=== PATIENT | female | born 1940 | race Caucasian/White ===

== ENCOUNTER → 2018-07-16 | Outpatient (CLI) | payer OTHER | LOC: FIMAGING 10:21 | PROVIDERS: ATTEND Internal Medicine Rheumatology | DX: R91.8 Other nonspecific abnormal finding of lung field (principal); I25.10 Atherosclerotic heart disease of native coronary artery without angina pectoris; M06.9 Rheumatoid arthritis, unspecified ==

== ENCOUNTER 2018-10-29 09:23 | Inpatient (IN) | payer OTHER ==
[2018-10-29] MEDS ORDERED: NS 1,000 ML IV ONE (09:57)
[2018-10-29] MEDS ORDERED: ONDANSETRON 4 MG/2 ML VIAL IVP ONE ×2 (10:03→11:46)
--- NOTE | 2018-10-29 10:03 | EDPHY ---
H & P Stated Complaint: mid abd pain x 1 wk worse lst night,vomiting abd distention Time Seen by Provider: 10/29/18 09:43 HPI/ROS: CHIEF COMPLAINT: Abdominal pain and vomiting HISTORY OF PRESENT ILLNESS: This is a 78-year-old female with a history of rheumatoid arthritis on Humira, hypertension, and hypercholesterolemia. She has had 1 week of upper abdominal pain with associated vomiting. On the 1st day of this illness she vomited for 24 hr on and off. She then felt somewhat better, followed a bland diet and drank Pedialyte for the next 2 days. However , she continued with nausea and abdominal bloating; no vomiting. Last night she began vomiting again and vomited at least 4 times. No blood in the vomitus. She now complains of upper abdominal pain and bloating. She has not had diarrhea. She is passing gas. She had a bowel movement this morning, no blood. She has had a tubal ligation and an appendectomy, no other abdominal surgeries. She thinks she might have had a subjective fever 4 days ago, none since. REVIEW OF SYSTEMS: A ten system review of systems was performed and is negative with the exception of the items mentioned in the HPI. Past medical history: 1. Rheumatoid arthritis 2. Hypertension 3. Hyperlipidemia Past surgical history: 1. Appendectomy 2. Tubal ligation 3. Tonsillectomy Social history: She is here with her daughter. 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 She does not use tobacco products. She drinks 2 scotch per night. General Appearance: Alert. Vital signs reviewed. Blood pressure 143/88, temperature 36.5 degrees. Eyes: Pupils equal and round, no conjunctival injection, no discharge. Anicteric. ENT, Mouth: Mucous membranes are moist, no oropharyngeal erythema or edema. Neck: No lymphadenopathy, supple. Respiratory: Lungs are clear to auscultation; no wheezes, rales, or rhonchi. Cardiovascular: Regular rate and rhythm; no murmur, rub, or gallop. Gastrointestinal: Abdomen is soft with bilateral upper quadrant and midepigastric tenderness, also some periumbilical tenderness, mild distention, no masses or organomegaly, bowel sounds slightly decreased. No guarding. Skin: Warm and dry, no rashes on exposed skin, normal color. Back: Nontender to palpation over the thoracolumbar spine. No CVAT. Extremities: No lower extremity edema, no calf tenderness or swelling. Neurological: Alert and oriented. Moving all four extremities easily and equally. Psychiatric: Normal affect. - Personal History Tetanus Vaccine Date: 3 years ago - Medical/Surgical History Hx Asthma: No Hx Chronic Respiratory Disease: No Hx Diabetes: No Hx Cardiac Disease: No Hx Renal Disease: No Hx Cirrhosis: No Hx Alcoholism: No Hx HIV/AIDS: No Hx Splenectomy or Spleen Trauma: No Other PMH: hyperlipidemia. RA. Htn - Social History Smoking Status: Never smoked Constitutional: Initial Vital Signs Temperature (C) 36.5 C 10/29/18 09:30 Heart Rate 91 10/29/18 09:30 Respiratory Rate 16 10/29/18 09:30 Blood Pressure 143/88 H 10/29/18 09:30 O2 Sat (%) 95 10/29/18 09:30 O2 Delivery Mode Room Air Allergies/Adverse Reactions: Ngbsphi-[id number]-Syv Reductase Inhibitor Allergy (Verified 10/29/18 12:04) Other-Enter Comments Home Medications: Medication Instructions Recorded Acetaminophen [Tylenol 325mg (*)] 325 mg PO Q6 PRN 10/29/18 Adalimumab [Humira] 40 mg SQ Q14D 10/29/18 Famotidine [Pepcid 20 MG (*)] 20 mg PO DAILY PRN 10/29/18 Hydrochlorothiazide 25 mg PO HS 10/29/18 Ramipril [Altace] 20 mg PO HS 10/29/18 Simvastatin [Zocor] 20 mg PO HS 10/29/18 Terazosin HCl [Hytrin 1 MG (*)] 3 mg PO HS 10/29/18 amLODIPine BESYLATE [Norvasc 5 mg 5 mg PO HS 10/29/18 (*)] Medical Decision Making ED Course/Re-evaluation: 78-year-old female with abdominal pain, vomiting, and some mild abdominal distention. Obtain CT scan of the abdomen. CBC, chemistries, LFTs, lipase ordered. She was given 1 L IV fluid. Antiemetics as needed. CT of abd/pelvis shows high grade distal SBO with 2 transition points. Discussed with radiologist. She is being admitted to for IVF, pain control, NG if needed, surgery if not improving or if worsens. CBC, chemistries, LFTs, lipase reviewed. EKG reviewed. No acute ischemic changes. LAFB. Possible anteroseptal infarct, old. See MUSE. In the ED she received IVF and IV zofran, remained NPO. She had no further vomiting, NG not required. Differential Diagnosis: Abdominal pain including but not limited to SBO, perforated viscous, pancreatitis, vascular occlusion, cholecystitis, gastritis and urinary tract infection. - Data Points Laboratory Results: Laboratory Results 10/29/18 10:55 10/29/18 10:10 Medications Given: Acetaminophen (Tylenol) 325 mg PO Q6 PRN PRN Reason: Pain, Mild Stop: 04/27/19 18:12 Last Admin: 10/30/18 23:53 Dose: 325 mg Amlodipine Besylate (Norvasc) 5 mg PO HS NABILA Stop: 04/27/19 20:59 Last Admin: 10/30/18 20:39 Dose: 5 mg Dextrose/Sodium Chloride (D5w 1/2 Ns) 1,000 mls @ 150 mls/hr IV CONT NABILA Stop: 04/27/19 15:29 Last Admin: 10/31/18 08:40 Dose: 1,000 mls Miscellaneous Medication (Ramipril [Altace]) 20 mg PO HS NABILA Stop: 04/27/19 20:59 Last Admin: 10/30/18 20:40 Dose: 20 mg Ondansetron HCl (Zofran) 4 - 8 mg IVP Q4HRS PRN PRN Reason: Nausea/Vomiting, Can't Take PO Stop: 04/27/19 15:26 Last Admin: 10/29/18 18:14 Dose: 4 mg Discontinued Medications Sodium Chloride (Ns) 1,000 mls @ 0 mls/hr IV EDNOW ONE; Wide Open PRN Reason: Protocol Stop: 10/29/18 09:58 Last Admin: 10/29/18 10:06 Dose: 1,000 mls Ondansetron HCl (Zofran) 4 mg IVP EDNOW ONE Stop: 10/29/18 10:04 Last Admin: 10/29/18 10:08 Dose: 4 mg Ondansetron HCl (Zofran) 4 mg IVP EDNOW ONE Stop: 10/29/18 11:47 Last Admin: 10/29/18 11:51 Dose: 4 mg Ondansetron HCl (Zofran) 4 mg IVP Q4HRS PRN PRN Reason: Nausea/Vomiting, Can't Take PO Stop: 04/27/19 15:26 Last Admin: 10/29/18 15:43 Dose: 4 mg Point of Care Test Results: Chemistry 10/29/18 10:15 POC Sodium 133 mEq/L L mEq/L (135-145) POC Potassium 3.3 mEq/L mEq/L (3.3-5.0) POC Chloride 94 mEq/L L mEq/L (97-110) POC Total CO2 23 mEq/L mEq/L (22-31) POC BUN 29 mg/dL H mg/dL (7-23) POC Creatinine 1.1 mg/dL H mg/dL (0.6-1.0) POC Glucose 127 mg/dL H mg/dL (70-100) ISTAT H&H 10/29/18 10:15 POC Hgb 15.6 gm/dL gm/dL (12.6-16.3) POC Hct 46 % % (38-47) Departure - Departure Disposition: [facility] Inpatient Acute Clinical Impression: SBO (small bowel obstruction) Condition: Good
[2018-10-29 11:08] LABS: PLATELET COUNT 200 10^3/uL (150-400)
[2018-10-29] MEDS ORDERED: ONDANSETRON 4 MG/2 ML VIAL IVP PRN ×2 (15:27→18:30)
[2018-10-29] MEDS ORDERED: HYDROmorphONE/DILAUDID 1 MG/ML INJ IVP PRN (15:27)
--- NOTE | 2018-10-29 15:35 | CPEKG ---
Test Reason : OPEN Blood Pressure : / mmHG Vent. Rate : 079 BPM Atrial Rate : 079 BPM P-R Int : 156 ms QRS Dur : 094 ms QT Int : 374 ms P-R-T Axes : 051 -60 032 degrees QTc Int : 429 ms Sinus rhythm Probable left atrial enlargement Left anterior fascicular block Probable anteroseptal infarct, old Confirmed by Velma Vogel ([id number]) on 10/29/2018 3:34:39 PM Referred By: Velma Vogel Confirmed By:Velma Vogel
[2018-10-29] MEDS: D5W 1/2 NS 1,000 ML IV SCH ×2 (15:42→22:11)
[2018-10-29] MEDS ORDERED: FAMOTIDINE 20 MG TAB PO PRN (18:13)
--- NOTE | 2018-10-29 18:13 | SOAPPROG ---
SOAP Progress Note Assessment/Plan: Assessment: 78-YEAR-OLD FEMALE WHO PRESENTS WITH SMALL-BOWEL OBSTRUCTION AND HAS BEEN DEVELOPING OVER THE LAST WEEK BUT PARTICULARLY SEVERE PAIN AND NAUSEA AND VOMITING LAST NIGHT PAST HISTORY OF APPENDECTOMY AND TUBAL LIGATION HEENT NONICTERIC WITHOUT ADENOPATHY CHEST CLEAR COR REGULAR RHYTHM ABDOMEN SOFT, NONTENDER, DISTENDED WITH NO OBVIOUS HERNIAS EXTREMITIES FULL RANGE OF MOTION IMPRESSION IS SMALL BOWEL OBSTRUCTION Plan: ADMIT FOR OBSERVATION IV FLUIDS POSSIBLE NG TUBE AND POSSIBLE SURGERY IF NOT IMPROVING 10/29/18 18:11 Objective: Vital Signs Temp Pulse Resp BP Pulse Ox 36.6 C 80 12 130/75 H 95 10/29/18 14:20 10/29/18 14:20 10/29/18 14:20 10/29/18 14:20 10/29/18 14:20 10/28/18 10/29/18 10/30/18 05:59 05:59 05:59 Intake Total 1000 Balance 1000 ICD10 Worksheet Patient Problems: Problems Problem Status Onset SBO (small bowel obstruction) Acute - ICD10 Problem Qualifiers (1) SBO (small bowel obstruction)
--- NOTE | 2018-10-29 18:41 | GHP ---
[f rep st] PREOP HISTORY AND PHYSICAL DATE OF ADMISSION: 10/29/2018 The patient is a 78-year-old female who was admitted with a small-bowel obstruction. She does have a history of rheumatoid arthritis and is on Humira. She has had an appendectomy and a tubal ligation. CT scan shows a high-grade small-bowel obstruction. She has had a bowel movement today and yesterd ay, but is presently passing no flatus and having crampy abdominal pain. No vomiting presently, but she did have emesis and pain last night. She is admitted at this time for observation, IV fluids, po ssible NG tube if she develops emesis and possible surgery if not improving. REVIEW OF SYSTEMS: Negative on a full 10-point review except as related to the HPI. PAST MEDICAL HISTORY: Includes rheumatoid arthritis, appendectomy, tubal ligation, tonsillectomy, hy pertension and hyperlipidemia. 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 FAMILY HISTORY: Noncontributory. MEDICATIONS: Include Humira, ramipril, Zocor, terazosin, hydrochlorothiazide and amlodipine. ALLERGIES: Statins. PHYSICAL EXAM: GENERAL: An alert 78-year-old female in no acute distress. She is afebrile. HEAD A ND NECK: Exam revealed no icterus, oral lesions or adenopathy. Pupils are equal and reactive and EO Ms are intact. NECK: Supple with full range of motion, full pulses and no bruits. CHEST: Clear an d symmetric. COR: Regular rhythm without murmurs. ABDOMEN: Soft, quite distended and protuberant, but minimally tender with positive bowel sounds. There are no obvious hernias. She has a lower abd ominal midline incision, which is old and well healed. EXTREMITIES: Reveal full range of motion and full pulses. NEUROLOGIC: Exam was physiologic and symmetric. PSYCH: Exam reveals her to be alert , oriented and cooperative. IMPRESSION: Small bowel obstruction, probably secondary to adhesions. PLAN: Admit for observation, IV fluids, possible NG tube and possible surgery if not improving. /[id number]/MODL
[2018-10-29] MEDS: amLODIPine BESYLATE 5 MG TAB PO SCH (20:32)
[2018-10-29] MEDS: RAMIPRIL 10 MG PO SCH (21:31)
[2018-10-29] MEDS: ACETAMINOPHEN 325 MG TAB PO PRN (22:15)
[2018-10-30] MEDS: D5W 1/2 NS 1,000 ML IV SCH (05:05)
[2018-10-30 05:25] LABS: PLATELET COUNT 200 10^3/uL (150-400)
--- NOTE | 2018-10-30 08:53 | SOAPPROG ---
SOAP Progress Note Assessment/Plan: Assessment/plan: 78 y/o F admitted with SBO Feeling better this am, but abdomen xray shows persistent air/fluid levels. Insert NG tube today. Continue NPO and iv fluids. Hoping to avoid surgery. S: Feeling a little better. Passed small amount of gas this am. O: Alert Afebrile RRR No increased WOB Abdomen: distended, but soft. ttp. hypoactive bowel sounds 10/30/18 08:51 Objective: Vital Signs Temp Pulse Resp BP Pulse Ox 36.8 C 70 16 107/66 95 10/30/18 07:24 10/30/18 07:24 10/30/18 07:24 10/30/18 07:24 10/30/18 07:24 Laboratory Results 10/30/18 04:26 10/30/18 04:26 10/29/18 10/30/18 10/31/18 05:59 05:59 05:59 Intake Total 3072 Output Total 750 300 Balance 2322 -300 ICD10 Worksheet Patient Problems: Problems Problem Status Onset SBO (small bowel obstruction) Acute
--- NOTE | 2018-10-30 09:39 | ASMTCMCOM ---
CM Note CM Note Notes: Met with Pt and chart reviewed for discharge. Malgorzata is a 78 yr old admitted with upper abd pain and vomiting. 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 Pt will likely return home independently in the same living arrangements. CM available for needs. PLAN: Home independently when medically cleared. Date Signed: 10/30/2018 09:38 AM Electronically Signed By:Claudia Buckley
--- NOTE | 2018-10-30 09:55 | PDMN ---
Medical Necessity Medical necessity: Pt meets inpt criteria per MD order and MCG M-210, Intestinal Obstruction, 2 days, 78 y/o admitted w/SBO, likely secondary to adhesions, abd xray this AM shows persistent air/fluid levels, NG tube, cont NPO and IVF, est LOS>2MN for ongoing eval/treatment of above.
[2018-10-30] MEDS: ACETAMINOPHEN 325 MG TAB PO PRN ×2 (16:33→23:53)
[2018-10-30] MEDS: amLODIPine BESYLATE 5 MG TAB PO SCH (20:39)
[2018-10-30] MEDS: RAMIPRIL 10 MG PO SCH (20:40)
[2018-10-30] MEDS ORDERED: RAMIPRIL 5 MG CAP PO SCH (21:00)
--- NOTE | 2018-10-31 08:06 | ASMTCMCOM ---
CM Note CM Note Notes: Pt is Pre op for surgery due to a small bowel obstruction this morning. Continues on IVF and NG tube, NPO. Pt will likely return home independently when medically stable and with no complications. 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 CM available for needs. PLAN: Home with daughters. Date Signed: 10/31/2018 08:05 AM Electronically Signed By:Claudia Buckley
[2018-10-31] MEDS: D5W 1/2 NS 1,000 ML IV SCH (08:40)
[2018-10-31] MEDS ORDERED: ceFAZolin 2 GM/DEXTROSE 100 ML IV ONE (08:53)
--- NOTE | 2018-10-31 08:55 | SOAPPROG ---
MADHAVI Progress Note Assessment/Plan: Assessment: 78-YEAR-OLD FEMALE WHO PRESENTS WITH SMALL-BOWEL OBSTRUCTION AND HAS BEEN DEVELOPING OVER THE LAST WEEK BUT PARTICULARLY SEVERE PAIN AND NAUSEA AND VOMITING LAST NIGHT PAST HISTORY OF APPENDECTOMY AND TUBAL LIGATION HEENT NONICTERIC WITHOUT ADENOPATHY CHEST CLEAR COR REGULAR RHYTHM ABDOMEN SOFT, NONTENDER, DISTENDED WITH NO OBVIOUS HERNIAS EXTREMITIES FULL RANGE OF MOTION IMPRESSION IS SMALL BOWEL OBSTRUCTION Plan: ADMIT FOR OBSERVATION IV FLUIDS POSSIBLE NG TUBE AND POSSIBLE SURGERY IF NOT IMPROVING 10/29/18 18:11 10/31/18 08:53 NO IMPROVEMENT IN SBO/ NO FLATUS/ LARGE NG OUTPUT/ AFEBRILE/ 2-WAY PENDING BUT STILL DISTENDED PLAN PROCEED WITH SURGERY/ RISKS AND OPTIONS FULLY DISCUSSED Objective: Vital Signs Temp Pulse Resp BP Pulse Ox 36.4 C 88 16 128/84 H 94 10/31/18 07:54 10/31/18 07:54 10/31/18 07:54 10/31/18 07:54 10/31/18 07:54 Laboratory Results 10/30/18 04:26 10/30/18 04:26 10/30/18 10/31/18 11/01/18 05:59 05:59 05:59 Intake Total 3072 1800 Output Total 750 1400 Balance 2322 400 ICD10 Worksheet Patient Problems: Problems Problem Status Onset SBO (small bowel obstruction) Acute - ICD10 Problem Qualifiers (1) SBO (small bowel obstruction)
[2018-10-31] MEDS ORDERED: BUPIVACAINE 0.5% 30 ML SDV ONE (10:12)
[2018-10-31] MEDS ORDERED: HEPARIN 1000 UNIT/1 ML MDV ONE (10:12)
[2018-10-31] MEDS ORDERED: ceFAZolin 1 GM/5 ML SYR ONE (10:13)
[2018-10-31] MEDS ORDERED: THROMBIN(HUM PLAS)/FIBRINOG/CA 5 ML VIAL TP ONE (10:14)
--- NOTE | 2018-10-31 10:16 | PDANEPAE ---
ANE History of Present Illness Bowel obstruction for laparoscopy possible laparotomy ANE Past Medical History - Cardiovascular History Hx Hypertension: Yes Hx Arrhythmias: No Hx Chest Pain: No Hx Coronary Artery / Peripheral Vascular Disease: No - Pulmonary History Hx Asthma/Reactive Airway Disease: No Hx Oxygen in Use at Home: No Hx Sleep Apnea: No Sleep Apnea Screening Result - Last Documented: Positive - Endocrine History Hx Diabetes: No - Chronic Pain History Chronic Pain: No ANE Review of Systems Review of Systems: ANE Patient History - Allergies Allergies/Adverse Reactions: Cyuaqyy-Ujj-Omq Reductase Inhibitor Allergy (Verified 10/29/18 12:04) Other-Enter Comments - Home Medications Home medications: home medication list seen and reviewed Home Medications: Acetaminophen [Tylenol 325mg (*)] 325 mg PO Q6 PRN 10/29/18 [Last Taken Unknown] Adalimumab [Humira] 40 mg SQ Q14D 10/29/18 [Last Taken 10/19/18] Famotidine [Pepcid 20 MG (*)] 20 mg PO DAILY PRN 10/29/18 [Last Taken 10/28/18 21:00] Hydrochlorothiazide 25 mg PO HS 10/29/18 [Last Taken 10/28/18] Ramipril [Altace] 20 mg PO HS 10/29/18 [Last Taken 10/28/18] Simvastatin [Zocor] 20 mg PO HS 10/29/18 [Last Taken 10/27/18] Terazosin HCl [Hytrin 1 MG (*)] 3 mg PO HS 10/29/18 [Last Taken 10/28/18] amLODIPine BESYLATE [Norvasc 5 mg (*)] 5 mg PO HS 10/29/18 [Last Taken 10/28/18] - NPO status NPO Since - Liquids (Date): 10/31/18 (Sips water until 09:20) NPO Since - Liquids (Time): 00:00 NPO Since - Solids (Date): 10/31/18 NPO Since - Solids (Time): 00:00 - Smoking Hx Smoking Status: Never smoked ANE Labs/Vital Signs - Labs Result Diagrams: 10/30/18 04:26 10/30/18 04:26 - Vital Signs Blood Pressure: 128/84 Heart Rate: 87 Respiratory Rate: 20 O2 Sat (%): 93 Height: 167.64 cm Weight: 72.121 kg ANE Physical Exam - Airway Neck exam: decreased ROM Mallampati Score: Class 2 Mouth exam: normal dental/mouth exam - Pulmonary Pulmonary: no respiratory distress - Cardiovascular Cardiovascular: regular rate and rhythym - ASA Status ASA Status: III, E ANE Anesthesia Plan Anesthesia Plan: general endotracheal anesthesia (NG to suction and RSI)
[2018-10-31] MEDS ORDERED: PROPOFOL 200 MG/20 ML VIAL ONE (10:41)
[2018-10-31] MEDS ORDERED: fentaNYL 100 MCG/2 ML INJ ONE (10:41)
[2018-10-31] MEDS ORDERED: LIDOCAINE 2% 2 ML INJ ONE (10:41)
[2018-10-31] MEDS ORDERED: DEXAMETHASONE 4 MG/ML VIAL ONE (11:18)
[2018-10-31] MEDS ORDERED: ONDANSETRON 4 MG/2 ML VIAL ONE (11:19)
[2018-10-31] MEDS ORDERED: NALOXONE HCL 0.4 MG/ML INJ IVP PRN (11:25)
[2018-10-31] MEDS ORDERED: fentaNYL 100 MCG/2 ML INJ IVP PRN (11:25)
[2018-10-31] MEDS ORDERED: ONDANSETRON 4 MG/2 ML VIAL IVP PRN (11:25)
[2018-10-31] MEDS ORDERED: SUGAMMADEX SODIUM 200 MG/2 ML VIAL IVP ONE (11:38)
--- NOTE | 2018-10-31 11:53 | POSTANESTH ---
Post Anesthetic Evaluation Cardiovascular Status: Similar to Pre-Op Cond Respiratory Status: Similar to Pre-op Cond. Level of Consciousness/Mental Status: Alert and Oriented Pain Control: Adequate, Prn Tx Ordered Nausea/Vomiting Control: Adequate, Prn Tx Ordered Complications Possibly Related to Anesthesia: None Noted
--- NOTE | 2018-10-31 11:54 | POSTOPPROG ---
Post Op Note Date of Operation: 10/31/18 Surgeon: Jamal Alvarez Journeyman Powerhouse Operator: Gordon Anesthesiologist: Blair Anesthesia: GET(General Endotracheal) Pre-op Diagnosis: SBO Post-op Diagnosis: Same Indication: same Procedure: Lap DEON Findings: band of scar tissue wrapped around small bowel. Inf/Abcess present in the surg proc area at time of surgery?: No Depth: Organ Space EBL: Minimal Bowel Protocol: N/A Clean Closure Performed: N/A
--- NOTE | 2018-10-31 18:23 | GOP ---
[f rep st] OPERATIVE REPORT DATE OF OPERATION: 10/31/2018 SURGEON: Jamal Alvarez MD PREOPERATIVE DIAGNOSIS: Small bowel obstruction. POSTOPERATIVE DIAGNOSIS: Small bowel obstruction. PROCEDURE PERFORMED: Laparoscopy with adhesiolysis and release of small-bowel obstruction. FINDINGS: Patient was found to have a knuckle of small bowel trapped in a single band in the right l ower quadrant near the previous appendectomy site. The rest of the bowel was free from any adhesions or abnormalities. DESCRIPTION OF PROCEDURE: The patient was taken to the operating room where she received satisfactor y general endotracheal anesthesia by Dr. Pinto. She was placed in supine position, prepped an d draped in usual sterile fashion. Supraumbilical incision was made and a Veress needle inserted. Pneumoperitoneum was established. Tr ocar was introduced. Laparoscope introduced. Adequate visualization was obtained. Two other trocar s placed in the lower abdomen. Bowel was mobilized. The point of obstruction was identified in the right lower quadrant. Fibrous band was readily cut releasing the trapped knuckle of small bowel. Tomer wel, itself, was viable and quite mobile. The adhesive band was completely removed. Hemostasis was assured. The bowel was then run from and then from the ligament of Treitz to the ileocecal valve wit h no other abnormalities being encountered. Trocars were then removed under direct vision and pneumoperitoneum was released. Trocar sites were c losed with 4-0 Monocryl subcuticular sutures for the skin. All layers were infiltrated with 0.5% [place]. Blood loss was negligible. Taken recovery room in good condition. No complications. /[id number]/MODL
[2018-10-31] MEDS: RAMIPRIL 10 MG PO SCH (20:20)
[2018-10-31] MEDS: amLODIPine BESYLATE 5 MG TAB PO SCH (20:20)
--- NOTE | 2018-11-01 12:49 | SOAPPROG ---
SOAP Progress Note Assessment/Plan: Assessment: 78-year-old female status post adhesiolysis for small bowel obstruction Vitals remained stable Abdomen is soft nondistended nontender with good bowel sounds, she is tolerating clear liquids. Will advance diet. She still on supplemental oxygen, wean is as tolerated Ideally she would wean off the oxygen before we send her home, which we later today versus tomorrow. Plan: 11/01/18 12:49 Subjective: Feels better, hungry Objective: Vital Signs Temp Pulse Resp BP Pulse Ox 36.8 C 85 16 124/80 H 92 11/01/18 11:15 11/01/18 11:15 11/01/18 11:15 11/01/18 11:15 11/01/18 11:19 Laboratory Results 10/30/18 04:26 10/30/18 04:26 10/31/18 11/01/18 11/02/18 05:59 05:59 05:59 Intake Total 1800 1610 Output Total 1400 Balance 400 1610 ICD10 Worksheet Patient Problems: Problems Problem Status Onset SBO (small bowel obstruction) Acute
[2018-11-01] MEDS: amLODIPine BESYLATE 5 MG TAB PO SCH (21:05)
[2018-11-01] MEDS: RAMIPRIL 10 MG PO SCH (21:06)
[2018-11-02] MEDS: ACETAMINOPHEN 325 MG TAB PO PRN ×2 (01:08→08:32)
[2018-11-02 07:14] VITALS: BP 121/68
--- NOTE | 2018-11-02 09:00 | ASMTLACE ---
LACE Length of stay for Answers: 3 days current admission Acuity / Level of Answers: Yes Care: Did the patient have an inpatient admission? Comorbidities - select Answers: Other Notes: HTN; HLD all that apply # of Emergency department Answers: 1-2 visits in the last 6 months Score: 8 Date Signed: 11/02/2018 08:59 AM Electronically Signed By:Lisa Jacome RN
--- NOTE | 2018-11-02 09:23 | PDDCSUM ---
Discharge Summary Discharge Summary: DISCHARGE SUMMARY Date of Admission October 29 Date of Discharge November 02 DISCHARGE DIAGNOSES -small-bowel obstruction HOSPITAL COURSE The patient was admitted from the ED and taken to the operating room where they underwent an uneventful laparoscopic lysis of adhesions. They were subsequently taken to the PACU and then the general medical floor. The hospital course was uneventful, their diet was advanced to a regular diet which was well tolerated and their pain was well controlled. They were discharged home in stable condition on DISCHARGE MEDICATIONS All home meds restarted, ibuprofen and Tylenol as needed for pain DISPOSITION Home FOLLOW UP Follow up with Dr. Alvarez in the office in 10-14 days for a general post- operative visit
--- NOTE | 2018-11-03 22:15 | GOP ---
[f rep st] OPERATIVE REPORT DATE OF OPERATION: 10/31/2018 SURGEON: Jamal Alvarez MD CUSTOM CAR BUILDER: Estefania Leyva, nurse-practitioner. PREOPERATIVE DIAGNOSIS: Small-bowel obstruction. POSTOPERATIVE DIAGNOSIS: Small-bowel obstruction. PROCEDURE PERFORMED: Laparoscopic adhesiolysis and release of small bowel obstruction. FINDINGS: WITH ACUTE SMALL-BOWEL OBSTRUCTION SECONDARY TO A SINGLE BAND ADHESION WITH VIABLE BOWEL DESCRIPTION OF PROCEDURE: Patient was taken to the operating room where she received satisfactory general endotracheal anesthesia. She was placed in supine position, prepped and draped in the usual sterile fashion. A short periumbilical incision was made. A Veress needle was inserted. Pneumoperitoneum was established. Trocar was introduced. Laparoscope was introduced. Good visualization was obtained. Two other trocars were placed in the lower abdomen under direct vision. The small bowel was manipulated and a point of obstruction was identified in the right lower quadrant near the old appendectomy site where there was a knuckle of small bowel trapped in a single band adhesion. The adhesion was lysed carefully freeing up the small bowel which appeared to be completely viable. The bowel was then retraced from the ligament of Treitz to the terminal ileum. There were no other adhesions or particular difficulties encountered. The bowel again appeared to be quite viable. Trocars removed under direct vision. Trocar sites were closed with 4- 0 Monocryl subcuticular stitch for the skin. All layers infiltrated with 0.5% [place]. She was taken to the recovery room in good condition. There were no complications. Blood loss negligible. /[id number]/MODL MTDD
== END 2018-11-02 13:22 | disposition home or self-care (01) | DRG 390 ==
LOC: F1N 14:12
PROVIDERS: ADMIT Surgery; ATTEND Surgery
PROC: 0DN88ZZ Release Small Intestine, Via Natural or Artificial Opening Endoscopic (ICD-10-PCS; principal; 2018-10-31 10:15)
DX: K56.51 Intestinal adhesions [bands], with partial obstruction (principal); M06.9 Rheumatoid arthritis, unspecified; I10 Essential (primary) hypertension; E78.00 Pure hypercholesterolemia, unspecified
CPT/HCPCS: 82435-PO; 82565-PO; 82947-PO; 84132-PO; 84295-PO; 84520-PO; 85014-ER; 96374; J0690; J1100; J2405; J2704; J3010